=== PATIENT | male | born 1955 | race Caucasian/White ===

== ENCOUNTER 2024-08-03 05:44 | Day surgery (SDC) | payer MEDICARE ==
--- NOTE | 2024-07-29 15:02 | ELECTROCARDIOGRAPH REPORT ---
[facility] Test Date: 2024-07-29 Test Time: 14:59:12 Pat Name: AROLDO WALTON Department: [facility]-PRE-OP Patient ID: [id number] Room: Gender: M Cannery Worker: CINDY : 1955 Requested By: LATOYA OROZCO Order Number: [id number] Reading MD: Dr. Eddie Senior Measurements Intervals [place] Rate: 55 P: 19 KS: 167 QRS: 35 QRSD: 125 T: 57 QT: 439 QTc: 420 Interpretive Statements Sinus bradycardia IVCD, consider atypical RBBB Electronically Signed On 07-30-2024 9:46:[address] Eddie Senior Please click the below link to view image of tracing.
[2024-07-29 15:59] LABS: BASOPHILS % (AUTO) 0.3 % (0-1); EOSINOPHILS # (AUTO) 0.2 X10'3 (0-0.9); EOSINOPHILS % (AUTO) 3.2 % (0-6); LYMPHOCYTES # (AUTO) 1.9 X10'3 (1.1-4.8); MEAN CORPUSCULAR HEMOGLOBIN 29.8 PG (27.0-31.0); MEAN CORPUSCULAR HGB CONC 34.6 g/dL (33.0-36.5); MEAN CORPUSCULAR VOLUME 86.2 FL (78-98); MEAN PLATELET VOLUME 8.8 FL (7.4-10.4); MONOCYTES # (AUTO) 0.7 X10'3 (0-0.9); MONOCYTES % (AUTO) 10.5 % (2-12); NEUTROPHILS # (AUTO) 3.5 X10'3 (1.8-7.7); PRE OP HEMATOCRIT 42.4 % (42.0-52.0); PRE OP HEMOGLOBIN 14.6 g/dL (14.0-17.9); PRE OP PLATELET COUNT 199 X10'3 (140-440); PRE OP WHITE BLOOD COUNT 6.3 10'3 (4.8-10.8); RED BLOOD COUNT 4.91 X10'6 (4.70-6.10)
[2024-07-29 16:21] LABS: ALBUMIN 3.9 G/DL (3.4-5.0); ALBUMIN/GLOBULIN RATIO 1.3 (1.1-1.5); ALKALINE PHOSPHATASE 63 IU/L (46-116); BLOOD UREA NITROGEN 17 MG/DL (7-18); BUN/CREATININE RATIO 16.8 (10.0-20.0); CALCIUM 8.5 MG/DL (8.5-10.1); CHLORIDE 106 MMOL/L (99-107); CREATININE 1.01 MG/DL (0.60-1.10); PRE OP ALT 34 U/L (30-65); PRE OP ANION GAP 9 (8-16); PRE OP AST 22 U/L (10-37); PRE OP GLUCOSE 85 MG/DL (70-104); PRE OP SODIUM 139 MMOL/L (135-145); TOTAL CARBON DIOXIDE 24.5 MMOL/L (24-32); TOTAL PROTEIN 6.8 G/DL (6.4-8.2); eGFR 73 ML/MIN
[2024-08-03] VITALS (8 sets, daily range): BP systolic 112–137; BP diastolic 61–90; PULSE 51–62; RESP 12–17; TEMP 97.7; O2SAT 95–98
[~2024-08-03] VITALS: Ht 170.2 cm; Wt 122.5 kg
[2024-08-03] MEDS: ringers solution, lactated 500 ML IV SCH (05:30)
[~2024-08-03 05:44] MED LIST: ATOR20TA PO; PRAS5TAB3 PO; TERB250T89 PO
[2024-08-03] MEDS: famotidine 20mg tablet PO ONE (06:16)
[2024-08-03] MEDS: CEFAZOLIN 3GM/DEXTROSE 150mL 150 ML IV ONE (06:18)
[2024-08-03] MEDS ORDERED: LIDOcaine 2% (20mg/ml) 5ml vial ONE (06:58)
[2024-08-03] MEDS ORDERED: BUPIVAcaine/PF 2.5mg/ml (0.25%) 10ml vial ONE (06:58)
[2024-08-03] MEDS ORDERED: morphine 4 MG/ML inj SYRINge IV PRN (08:05)
[2024-08-03] MEDS ORDERED: proCHLORperazine 10 MG/2 ml inj IV PRN (08:05)
[2024-08-03] MEDS ORDERED: morphine 2 MG/ML inj. syringe IV PRN (08:05)
[2024-08-03] MEDS ORDERED: acetaminophen 1,000mg/100ml IV 100 ML IV PRN (08:05)
[2024-08-03] MEDS ORDERED: ondansetron/PF 4mg/2ml inj IV PRN (08:05)
[2024-08-03] MEDS ORDERED: HYDROmorphone/PF 0.2 MG/ML SYRINGE IV PRN ×2 (08:05)
[2024-08-03] MEDS ORDERED: hydrALAZINE 20mg/ml inj. IV PRN (08:05)
[2024-08-03] MEDS ORDERED: labetalol 20mg/4ml (5mg/ml) syringe IV PRN (08:05)
[2024-08-03] MEDS ORDERED: meperidine/PF 25mg/ml syringe IV PRN (08:05)
[2024-08-03] MEDS ORDERED: ringers solution, lacted 1,000 ML IV SCH (08:05)
[2024-08-03] MEDS ORDERED: fentaNYL/PF 50MCG/1 ML 2ML syringe ONE (08:13)
[2024-08-03] MEDS ORDERED: midazolam 1 mg/ML 2ml injection ONE (08:23)
[2024-08-03] MEDS ORDERED: propofol inj 20 ML IV ONE (08:29)
--- NOTE | 2024-08-03 12:29 | OPERATIVE REPORT ---
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 Surgery is indicated to identify the mass and to improve function. Risks and benefits were discussed with the patient. Some of the risks would be infection, bleeding, recurrence, he agreed to proceed with, he was then brought to the operating room where the arm was prepped and draped in usual manner. A tourniquet was inflated on the forearm and local anesthetic was infiltrated proximal to the incision site. The 1.5 in incision was made directly over the mass on the radial side of the thumb. 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 The it was traced down deep to the extensor tendon and actually had its origin at the metacarpal phalangeal joint. Partial capsulectomy was performed while the mass was excised out of the joint and the entire mass was removed in one piece. It measured 2 cm x 1 cm x 1 cm. There were incision was irrigated and closed with nylon suture. A sterile dressing was then applied the. The tourniquet was released and the hand perfused well so the patient was taken to the recovery room in stable co ndition EH BOX Jr., MD August 03, 2024 12:29
== END 2024-08-03 09:40 | disposition home or self-care (01) ==
LOC: PAS 05:44
PROVIDERS: ATTEND Orthopaedic Surgery Hand Surgery
DX: D21.11 Benign neoplasm of connective and other soft tissue of right upper limb, including shoulder (principal); D48.19 Other specified neoplasm of uncertain behavior of connective and other soft tissue; I25.2 Old myocardial infarction; G47.33 Obstructive sleep apnea (adult) (pediatric); I25.10 Atherosclerotic heart disease of native coronary artery without angina pectoris; M19.011 Primary osteoarthritis, right shoulder; E78.00 Pure hypercholesterolemia, unspecified; Z79.899 Other long term (current) drug therapy; Z98.890 Other specified postprocedural states; Z95.5 Presence of coronary angioplasty implant and graft; Z87.891 Personal history of nicotine dependence; Z72.89 Other problems related to lifestyle
CPT/HCPCS: 26113; 36415; 80053; 82948; 85025; 93005; A4215; A6222; A6449; A7000; J2003; J2250; J2704; J3010; J3490; J7030; J7120; Z7506; Z7512; Z7610